=== PATIENT | female | born 1935 | race Caucasian/White ===

== ENCOUNTER 2020-06-24 13:45 | Emergency (ER) | payer MEDICARE, BC ==
[2020-06-24] MEDS ORDERED: Sodium Chloride 0.9% 10 ML Syringe FLUSH PRN (13:56)
--- NOTE | 2020-06-24 14:00 | EDM.PDOC ---
ED HPI GENERAL MEDICAL PROBLEM - General Stated Complaint: CHEST PAIN Time Seen by Provider: 06/24/20 13:55 Source of Information: Reports: Patient, EMS History Limitations: Reports: No Limitations - History of Present Illness INITIAL COMMENTS - FREE TEXT/NARRATIVE: Patient arrives via EMS for chest pain. Patient has had on and off chest pain pressure mild to moderate with exertion for the past week. She noticed when she was pushing snow last week she developed chest pressure in which she had to rest and the pain went away. She has had this chest pain/pressure on and off only with activity for the past week and she arrives to the [facility] for her annual physical/med refill. She developed chest pain while she was in there, EKG was done nonspecific T wave elevation. She was given 4 tablets of 81 mg of aspirin and EMS was called to transfer here to ER. Patient was given 3 doses of sublingual nitroglycerin which pain resolved. 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 Shes denies any fever,chills, or respiratory symptoms or COVID-19 exposures or concerns. 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 On arrival to the emergency room she is chest pain- free. - Related Data Allergies Allergy/AdvReac Type Severity Reaction Status Date / Time Sulfa (Sulfonamide Allergy Cannot Verified 06/24/20 14:45 Antibiotics) Remember Home Meds: Home Meds Acetaminophen [Acetaminophen 8 Hour] 650 mg PO BID PRN 06/12/14 [History] Aspirin [[place] Aspirin] 81 mg PO DAILY 06/12/14 [History] Calcium Carbonate [Calcium Carbonate 250 MG/ML Susp] 5 ml PO DAILY 06/12/14 [History] Leflunomide [Arava] 10 mg PO DAILY 06/12/14 [History] Loratadine [Claritin] 10 mg PO BEDTIME PRN 06/12/14 [History] Magnesium 250 mg PO DAILY 06/12/14 [History] Metoprolol Succinate 25 mg PO DAILY 06/12/14 [History] Multivitamin [Multiple Vitamins] 1 tab PO DAILY 06/12/14 [History] [place]-3 Fatty Acids [Fish Oil] 1,000 mg PO DAILY 06/12/14 [History] Omeprazole [priLOSEC OTC] 20 mg PO DAILY PRN 06/12/14 [History] PEG 400/Propylene Glycol [Systane Lubricant] 2 drop EYEBOTH Q3H 06/12/14 [History] Simvastatin [Zocor] 20 mg PO BEDTIME 06/12/14 [History] ALPRAZolam [Xanax] 0.25 mg PO TID PRN 06/24/20 [History] Folic Acid 2 mg PO DAILY 06/24/20 [History] Rivaroxaban [Xarelto] 10 mg PO DAILY@1800 06/24/20 [History] Ubidecarenone [Co Q-10] 200 mg PO DAILY 06/24/20 [History] lisinopriL [Lisinopril] 10 mg PO DAILY 06/24/20 [History] ED ROS GENERAL - Review of Systems Review Of Systems: See Below Constitutional: Denies: Fever, Chills HEENT: Reports: No Symptoms. Denies: Rhinitis, Throat Pain Respiratory: Reports: No Symptoms. Denies: Shortness of Breath, Cough Cardiovascular: Reports: Chest Pain GI/Abdominal: Denies: Abdominal Pain, Nausea, Vomiting Musculoskeletal: Reports: No Symptoms Skin: Reports: No Symptoms Neurological: Reports: No Symptoms Psychiatric: Reports: No Symptoms Hematologic/Lymphatic: Reports: No Symptoms ED EXAM, GENERAL - Physical Exam Exam: See Below Exam Limited By: Other General Appearance: Alert, WD/WN, No Apparent Distress Throat/Mouth: Normal Inspection, Normal Oropharynx Head: Atraumatic, Normocephalic Neck: Normal Inspection, Supple Respiratory/Chest: No Respiratory Distress, Lungs Clear, Normal Breath Sounds Cardiovascular: Normal Peripheral Pulses, Regular Rate, Rhythm, No Murmur Peripheral Pulses: 2+: Radial (L), Radial (R), Posterior Tibial (L), Posterior Tibial (R), Dorsalis Pedis (L), Dorsalis Pedis (R) GI/Abdominal: Normal Bowel Sounds, Soft, Non-Tender Back Exam: Full Range of Motion Extremities: Normal Inspection, Normal Range of Motion, Normal Capillary Refill Neurological: Alert, Oriented Psychiatric: Normal Affect, Normal Mood Skin Exam: Warm, Dry, Intact. No: Diaphoretic #1 Interpretation EKG Date: 06/24/20 Time: 13:56 Rhythm: NSR [place]: Normal P-Wave: Present QRS: Normal ST-T: Other (V2 and V3 [address] elevation) QT: Normal #2 Interpretation EKG Date: 06/24/20 Time: 17:30 Rhythm: NSR [place]: Normal P-Wave: Present QRS: Normal QT: Normal Course - Vital Signs Last Recorded V/S: Last Vital Signs Temp 97.2 F 06/24/20 13:50 Pulse 64 06/24/20 17:30 Resp 14 06/24/20 17:30 BP 160/78 H 06/24/20 17:30 Pulse Ox 96 06/24/20 17:30 - Orders/Labs/Meds Orders: Active Orders 24 hr Category Date Time Status EKG Documentation Completion [RC] ASDIRECTED Care 06/24/20 13:56 Active Sodium Chloride 0.9% [Saline Flush] Med 06/24/20 13:56 Active 10 ml FLUSH Q8HR PRN Saline Lock Insert [OM.PC] Routine Oth 06/24/20 13:56 Ordered EKG 12 Lead [EK] Stat Ther 06/24/20 13:56 Stop Req EKG 12 Lead [EK] Stat Ther 06/24/20 16:30 Ordered Medication Orders Sodium Chloride (Saline Flush) 10 ml FLUSH Q8HR PRN PRN Reason: keep vein open Labs: Laboratory Tests 06/24/20 06/24/20 06/24/20 Range/Units 13:55 13:55 17:20 WBC 4.49 L (5.00-10.00) 10^3/uL RBC 4.43 (3.80-5.50) 10^6/uL Hgb 13.3 (12.0-16.0) g/dL Hct 41.4 (37.0-47.0) % MCV 93.5 H D (82.0-92.0) fL MCH 30.0 (27.0-31.0) pg MCHC 32.1 (32.0-36.0) g/dL RDW 12.8 (11.5-14.5) % Plt Count 261 (150-400) 10^3/uL MPV 9.8 (7.4-10.4) fL Sodium 140 (136-145) mmol/L Potassium 4.2 (3.3-5.3) mmol/L Chloride 104 (98-115) mmol/L Carbon Dioxide 29.6 (21.0-32.0) mmol/L Anion Gap 10.6 (5-15) mmol/L BUN 20 (6-25) mg/dL Creatinine 0.87 (0.51-1.17) mg/dL Est Cr Clr Drug Dosing 43.45 mL/min Estimated GFR (MDRD) > 60 mL/min Glucose 103 H (75 - 99) mg/dL Calcium 9.5 (8.7-10.3) mg/dL Total Bilirubin 0.5 (0.2-1.0) mg/dL AST 12 L (15-37) U/L ALT 16 (12-78) U/L Alkaline Phosphatase 49 (46-116) IU/L Troponin I < 0.04 < 0.04 (0.00-0.070) ng/mL Total Protein 6.6 (6.4-8.2) g/dL Albumin 3.66 (3.00-4.80) g/dL Meds: Medications Generic Name Dose Route Start Last Admin Trade Name Freq PRN Reason Stop Dose Admin Sodium Chloride 10 ml 06/24/20 13:56 Saline Flush FLUSH Q8HR PRN keep vein open - Re-Assessments/Exams Free Text/Narrative Re-Assessment/Exam: 06/24/20 14:17 Labs x-ray completed. Chest pain-free no intervention at this time. I did have Dr. Chaves review EKG no signs of STEMI at this time. non specific, ST elevation in leads II and III however there are only 1 mm. 06/24/20 18:00 Patient has been chest pain-free throughout entire stay ,repeat EKG and troponin at 530 after [facility], which were both negative. I did call her [employer] PCP Susy Mckeon [employer] reviewed plan of care. Patient will be discharged with return precautions discussed to return the ED. Patient verbalized understanding.. Patient will follow up with PCP next week Departure - Departure Time of Disposition: 17:56 Disposition: Home, Self-Care 01 Condition: Good Clinical Impression: Chest pain Qualifiers: Chest pain type: unspecified Qualified Code(s): R07.9 - Chest pain, unspecified Instructions: Nonspecific Chest Pain, Adult, [id number], Angina, [id number] Referrals: Susy Mckeon [employer] [Primary Care Provider] - Additional Instructions: f/u with Susy Mckeon for a recheck in clinic. Sepsis Event Note (ED) - Focused Exam Vital Signs: Vital Signs Temp Pulse Resp BP Pulse Ox 06/24/20 17:30 64 14 160/78 H 96 06/24/20 17:00 64 15 151/76 H 97 06/24/20 16:30 64 16 134/75 95 06/24/20 16:00 66 18 147/69 H 98 06/24/20 15:45 64 16 146/73 H 94 L 06/24/20 15:14 70 187/102 H 06/24/20 14:45 69 10 L 185/90 H 99 06/24/20 14:30 71 23 H 99 06/24/20 14:00 72 22 H 200/108 H 99 06/24/20 13:50 97.2 F 69 10 L 185/90 H 99 - My Orders Last 24 Hours: My Active Orders 06/24/20 13:56 EKG Documentation Completion [RC] ASDIRECTED Sodium Chloride 0.9% [Saline Flush] 10 ml FLUSH Q8HR PRN Saline Lock Insert [OM.PC] Routine EKG 12 Lead [EK] Stat 06/24/20 16:30 EKG 12 Lead [EK] Stat - Assessment/Plan Last 24 Hours: My Active Orders 06/24/20 13:56 EKG Documentation Completion [RC] ASDIRECTED Sodium Chloride 0.9% [Saline Flush] 10 ml FLUSH Q8HR PRN Saline Lock Insert [OM.PC] Routine EKG 12 Lead [EK] Stat 06/24/20 16:30 EKG 12 Lead [EK] Stat
[2020-06-24 14:32] LABS: ANION GAP 10.6 mmol/L (5-15); CHLORIDE,CL 104 mmol/L (98-115); SODIUM,NA 140 mmol/L (136-145)
--- NOTE | 2020-06-24 14:51 | CR ---
[id number] RAD/RAD Chest PA or AP 1V EXAM: FRONTAL CHEST INDICATION: Chest pain. COMPARISON: June 12, 2014. DISCUSSION: Hyperinflation suggests underlying COPD. Normal heart size. Mild basilar scarring or atelectasis with no definite infiltrates. IMPRESSION: 1. No acute findings. Luis Eduardo Cassidy MD 06/24/20 0133 Thank you for allowing us to participate in the care of your patient.
[2020-06-24 16:57] VITALS: PULSE 64
[2020-06-24 17:52] VITALS: BP 160/78
== END 2020-06-24 19:30 | disposition home or self-care (01) ==
LOC: KA.ED 13:45
DX: R07.89 Other chest pain (principal); Z88.2 Allergy status to sulfonamides; Z79.82 Long term (current) use of aspirin; Z79.899 Other long term (current) drug therapy; Z79.01 Long term (current) use of anticoagulants
CPT/HCPCS: 36415; 71045; 80053; 84484; 85027; 93005; 99284; 99285-25